=== PATIENT | female | born 1990 | race Two or more races ===

== ENCOUNTER 2021-03-14 22:08 | Inpatient (IN) | payer MEDICAID, OTHER ==
[~2021-03-14] VITALS: Ht 162.6 cm; Wt 96.6 kg
[2021-03-14] MEDS ORDERED: HALOPERIDOL 5 MG TABLET PO PRN (23:00)
[2021-03-14 23:21] LABS: BASOPHILS % (AUTO) 0.9 % (0.0-2.0); HEMATOCRIT 41.6 % (36-46); HEMOGLOBIN 13.9 g/dL (12.0-16.0); LYMPHOCYTES # (AUTO) 2.8 K/uL (1.0-4.8); LYMPHOCYTES % (AUTO) 29.1 % (22.0-44.0); MEAN CORPUSCULAR HEMOGLOBIN 31.2 pg (26.0-34.0); MEAN CORPUSCULAR HGB CONC 33.5 G/dL (31.0-37.0); MEAN CORPUSCULAR VOLUME 93 fL (80-100); MONOCYTES # (AUTO) 0.7 K/uL (0.1-1.0); MONOCYTES % (AUTO) 7.7 % (2.0-9.0); NEUTROPHILS # (AUTO) 5.8 K/uL (1.8-7.7); NEUTROPHILS % (AUTO) 61.3 % (40.0-70.0); PLATELET COUNT (AUTO) 209 K/uL (150-450); RED BLOOD CELL COUNT(AUTO) 4.47 MIL/uL (4.00-5.20); RED CELL DISTRIBUTION WIDTH 12.9 % (11.5-14.5)
[2021-03-14 23:30] LABS: ANION GAP 10 mmol/L (8-16); CALCIUM, TOTAL 9.3 mg/dL (8.8-10.5); CARBON DIOXIDE 25 mmol/L (22-29); CHLORIDE 104 mmol/L (98-107); GLOMERULAR FILTR. RATE CALC > 60 mL/min (>60); GLUCOSE,RANDOM 134 mg/dL (70-110); POTASSIUM 3.6 mmol/L (3.5-5.1); SODIUM SERUM 139 mmol/L (136-145); UREA NITROGEN, BLOOD 10 mg/dL (7-18)
[2021-03-14 23:36] LABS: ALANINE AMINOTRANSFERASE 33 U/L (12-78); ALBUMIN 3.6 g/dL (3.4-5.0); ALKALINE PHOSPHATASE 95 U/L (46-116); ASPARTATE AMINOTRANSFERASE 28 U/L (15-37); BILIRUBIN,TOTAL 0.5 mg/dL (0.1-1.0); TOTAL PROTEIN, SERUM 7.7 g/dL (6.4-8.2)
[2021-03-15 00:06] LABS: COVID AG,FIA SOURCE NASOPHARYNGEAL
[2021-03-15 00:15] LABS: APPEARANCE,URINE CLOUDY (CLEAR); GLUCOSE, URINE (UA) NEGATIVE (NEGATIVE); KETONES,URINE TRACE mg/dL (NEGATIVE); LEUKOCYTE ESTERASE ,URINE NEGATIVE (NEGATIVE); NITRATE,URINE POSITIVE (NEGATIVE); OCCULT BLOOD,URINE TRACE (NEGATIVE); PH,URINE 5.5 (5.0-8.0); PROTEIN,URINE NEGATIVE (NEGATIVE)
[2021-03-15 00:16] LABS: BILIRUBIN,URINE PRELIM. POSITIVE (NEGATIVE)
[2021-03-15 00:17] LABS: AMPHET/METH SCREEN,URINE NEGATIVE (NEGATIVE); BARBITURATE SCREEN, URINE NEGATIVE (NEGATIVE); BENZODIAZEPINES SCREEN,URINE NEGATIVE (NEGATIVE); CANNABINOID SCREEN,URINE NEGATIVE (NEGATIVE); COCAINE SCREEN,URINE NEGATIVE (NEGATIVE); METHADONE SCREEN, URINE NEGATIVE (NEGATIVE); OPIATE SCREEN,URINE NEGATIVE (NEGATIVE)
[2021-03-15 00:18] LABS: PHENCYCLIDINE SCREEN,URINE NEGATIVE (NEGATIVE)
[2021-03-15 00:33] LABS: CHOL/HDL RATIO 4.4 (3.9-5.7); CHOLESTEROL 195 mg/dL (131-200); HDL CHOLESTEROL 44 mg/dL (40-60); LDL CHOL (CALC.) 131 mg/dL (0-130); TRIGLYCERIDES 99 mg/dL (15-150)
[2021-03-15 00:34] LABS: BACTERIA,URINE Many /HPF (None Seen); MUCUS,URINE Few LPF (None Seen); RBC,URINE 0-2 /HPF (0-2); SQUAMOUS EPITHELIAL CELL,UR Many /LPF (None Seen); WBC,URINE 0-2 /HPF (0-5)
[2021-03-15 01:59] LABS: HCG,QUANTITATIVE < 1 mIU/mL (0-6)
[2021-03-15] MEDS: ZOLPIDEM TARTRATE 10 MG TABLET PO PRN ×2 (03:30→21:58)
[2021-03-15 03:49] VITALS: BP 131/80
[2021-03-15] MEDS ORDERED: MAG HYDROX/AL HYDROX/SIMETH ES 30 ML SUSPENSION UDCUP PO PRN (07:00)
[2021-03-15] MEDS ORDERED: NICOTINE 14 MG/24 HOUR PATCH TD PRN (07:00)
[2021-03-15] MEDS ORDERED: PETROLATUM,WHITE 28 GM JELLY TP PRN (07:00)
[2021-03-15] MEDS ORDERED: CloNIDine HCL 0.1 MG TABLET PO PRN (07:00)
[2021-03-15] MEDS ORDERED: LOPERAMIDE HCL 2 MG CAPSULE PO PRN (07:00)
[2021-03-15] MEDS ORDERED: DOCUSATE SODIUM 100 MG CAPSULE PO PRN (07:00)
[2021-03-15] MEDS ORDERED: IBUPROFEN 400 MG TABLET PO PRN (07:00)
[2021-03-15] MEDS ORDERED: ALBUTEROL SULFATE HFA 90 MCG/PUFF 8 GM INHALER IH PRN (07:00)
[2021-03-15] MEDS ORDERED: GuaiFENesin/D-METHORPHAN [SUGAR-FREE] 200-20MG/10 ML SYRUP UDCUP PO PRN (07:00)
[2021-03-15] MEDS ORDERED: ACETAMINOPHEN 325 MG TABLET PO PRN (07:00)
[2021-03-15] MEDS ORDERED: ONDANSETRON HCL 4 MG TABLET PO PRN (07:00)
[2021-03-15] MEDS ORDERED: MAGNESIUM HYDROXIDE SUSPENSION 30 ML UDCUP PO PRN (07:00)
[2021-03-15 08:37] VITALS: BP 91/59
[2021-03-15] MEDS: LORazepam 2 MG TABLET PO PRN (10:22)
[2021-03-15 16:34] VITALS: BP 122/84
[2021-03-16 08:00] VITALS: BP 134/89
[2021-03-16] MEDS: CITALOPRAM HYDROBROMIDE 10 MG TABLET PO SCH (08:04)
[2021-03-16] MEDS: LORazepam 2 MG TABLET PO PRN ×2 (08:04→14:23)
[2021-03-16] MEDS: ZOLPIDEM TARTRATE 10 MG TABLET PO PRN (21:26)
[2021-03-17 08:00] VITALS: BP 125/93
[2021-03-17] MEDS: CITALOPRAM HYDROBROMIDE 10 MG TABLET PO SCH (09:16)
[2021-03-17] MEDS: LORazepam 2 MG TABLET PO PRN (09:16)
[2021-03-17] MEDS ORDERED: CITA10TA99 PO (09:57)
== END 2021-03-17 13:30 | disposition home or self-care (01) | DRG 751 ==
LOC: EMS 22:08 → 3EC 22:59
PROVIDERS: ADMIT Psychiatry & Neurology Psychiatry; ATTEND Psychiatry & Neurology Psychiatry
DX: F33.2 Major depressive disorder, recurrent severe without psychotic features (principal); R45.851 Suicidal ideations; E11.9 Type 2 diabetes mellitus without complications; Z91.19 Patient's noncompliance with other medical treatment and regimen; F41.0 Panic disorder [episodic paroxysmal anxiety]; I10 Essential (primary) hypertension; Z91.5 Personal history of self-harm; G44.209 Tension-type headache, unspecified, not intractable; E66.9 Obesity, unspecified; Z68.36 Body mass index [BMI] 36.0-36.9, adult; Z59.0 Homelessness; Z20.822 Contact with and (suspected) exposure to COVID-19
CPT/HCPCS: 80053; 80061; 81001; 84702; 85025; 87077; 87086; 87186; 99285; G0480